=== PATIENT | female | born 1935 | race Caucasian/White ===

== ENCOUNTER 2017-12-24 01:42 | Emergency (ER) | payer MEDICARE, OTHER ==
[2017-12-24] MEDS ORDERED: LORazepam 2 MG/ML SDV IVPUSH ONE (02:04)
[2017-12-24] MEDS ORDERED: Furosemide 40 MG/4 ML VIAL IV ONE (02:05)
[2017-12-24] MEDS ORDERED: Albuterol/Ipratropium 3.0-0.5 MG/3 ML Neb Soln NEB ONE (02:05)
[2017-12-24] MEDS ORDERED: methylPREDNISolone Sodium Succinate 40 MG/1 ML SDV IVPUSH ONE (02:06)
[2017-12-24 02:54] LABS: CHLORIDE,CL 96 mmol/L (98-107)
[2017-12-24 03:03] LABS: ANION GAP 16.2 mmol/L (10-20); SODIUM,NA 127 mmol/L (136-145)
[2017-12-24] MEDS ORDERED: cefTRIAXone 1 GM Vial IVPUSH ONE (03:08)
[2017-12-24] MEDS ORDERED: Morphine 2 MG/ML Syringe IVPUSH ONE (03:13)
--- NOTE | 2017-12-24 03:54 | EDM.PDOC ---
ED HPI GENERAL MEDICAL PROBLEM - General Chief Complaint: Respiratory Problem Stated Complaint: Respiratory Distress Time Seen by Provider: 12/24/17 02:03 Source of Information: Reports: EMS, EMS Notes Reviewed History Limitations: Reports: No Limitations - History of Present Illness INITIAL COMMENTS - FREE TEXT/NARRATIVE: Patient was in respiratory distress and pushed her life alert button. EMS arrived to transport her and applied bipap, stated her oxygen saturations were 90%, and she had a very heavy work of breathing with retractions. She is not answering questions and is obtunded. Has a history of lung cancer, CHF, CAD, PVD, CABG, DM II. Onset: Sudden Location: Reports: Chest Associated Symptoms: Reports: Shortness of Breath Treatments QC MANAGER: Reports: Other Medication(s) (40 mg lasix given before arrival) - Related Data Allergies Allergy/AdvReac Type Severity Reaction Status Date / Time tramadol AdvReac Hallucinati Verified 12/24/17 03:55 ons Home Meds: Home Meds Acetaminophen 1,000 mg PO Q8H PRN 11/28/17 [History] Aspirin [Halfprin] 162 mg PO DAILY 11/28/17 [History] Benzonatate 200 mg PO TID PRN 11/28/17 [History] Calcium Carbonate [Calcium] 600 mg PO DAILY 11/28/17 [History] Carboxymethylcellulos/Glycerin [Lubricant 0.5-0.9% Eye Drops] 1 drop EYEBOTH DAILY 11/28/17 [History] Cyanocobalamin (Vitamin B-12) [B-12] 500 mcg PO DAILY 11/28/17 [History] Flaxseed Oil 1,000 mg PO BID 11/28/17 [History] Isosorbide Mononitrate [Isosorbide Mononitrate ER] 30 mg PO DAILY 11/28/17 [ History] Lisinopril 20 mg PO DAILY 11/28/17 [History] Lovastatin 20 mg PO DAILY 11/28/17 [History] Metoprolol Succinate [Toprol XL 100mg] 100 mg PO DAILY 11/28/17 [History] NIFEdipine [Nifedipine ER] 30 mg PO DAILY 11/28/17 [History] Nitroglycerin [Nitrostat] 0.4 mg SL ASDIRECTED PRN 11/28/17 [History] Omeprazole 20 mg PO DAILY 11/28/17 [History] PARoxetine HCl [Paroxetine HCl] 20 mg PO DAILY 11/28/17 [History] metFORMIN HCl [Metformin HCl] 1,000 mg PO BIDMEALS 11/28/17 [History] Albuterol/Ipratropium [DuoNeb 3.0-0.5 MG/3 ML] 3 ml NEB Q4HRRT PRN #1 neb [Rx] Albuterol/Ipratropium [DuoNeb 3.0-0.5 MG/3 ML] 3 ml NEB TIDRT #90 neb 11/30/17 [ Rx] Doxycycline [Vibramycin] 100 mg PO BID #6 cap 11/30/17 [Rx] Furosemide [Lasix] 20 mg PO DAILY #30 tablet 11/30/17 [Rx] Magnesium Oxide 400 mg PO DAILY #30 tablet 11/30/17 [Rx] Nitroglycerin [Nitrostat] 0.4 mg SL Q5M PRN #25 tab.sl 11/30/17 [Rx] ED ROS GENERAL - Review of Systems Review Of Systems: Unable To Obtain ED EXAM, GENERAL - Physical Exam Exam: See Below Exam Limited By: Respiratory Distress General Appearance: Obtunded, Mild Distress Eye Exam: Bilateral Eye: Normal Inspection Ears: Normal TMs Nose: Normal Inspection, Normal Mucosa, No Blood Throat/Mouth: Normal Inspection, Normal Lips, Normal Teeth, Normal Gums, Normal Oropharynx, Normal Voice, No Airway Compromise Head: Atraumatic, Normocephalic Neck: Normal Inspection, Supple, Non-Tender, Full Range of Motion Respiratory/Chest: Respiratory Distress, Decreased Breath Sounds, Rales, Accessory Muscle Use Cardiovascular: Normal Peripheral Pulses, Regular Rate, Rhythm, No Edema, No Gallop, No JVD, No Murmur, No Rub Peripheral Pulses: 2+: Posterior Tibial (L), Posterior Tibial (R), Dorsalis Pedis (L), Dorsalis Pedis (R) GI/Abdominal: Normal Bowel Sounds, Soft, Non-Tender, No Organomegaly, No Distention, No Abnormal Bruit, No Mass Back Exam: Normal Inspection, Full Range of Motion, NT Extremities: Normal Inspection, Normal Range of Motion, Non-Tender, Normal Capillary Refill, No Pedal Edema Neurological: Unresponsive Skin Exam: Diaphoretic Lymphatic: No Adenopathy Course - Vital Signs Last Recorded V/S: Last Vital Signs Temp 35.8 C 12/24/17 01:45 Pulse 80 12/24/17 04:50 Resp 17 12/24/17 04:50 BP 104/71 12/24/17 04:50 Pulse Ox 97 12/24/17 04:50 - Orders/Labs/Meds Orders: Active Orders 24 hr Category Date Time Status EKG Documentation Completion [RC] STAT Care 12/24/17 02:05 Ordered Ivy Catheter Insertion [Insert Urinary Catheter] [OM. Care 12/24/17 02:30 Ordered PC] Q24H RT Aerosol Therapy [RC] ASDIRECTED Care 12/24/17 02:05 Ordered Urinary Catheter Assessment [RC] ASDIRECTED Care 12/24/17 02:19 Ordered Chest 1V Frontal [CR] Stat Exams 12/24/17 02:03 Ordered URINALYSIS W/MICROSCOPIC [UA W/MICROSCOPIC] [URIN] Stat Lab 12/24/17 02:17 Ordered Labs: Laboratory Tests 12/24/17 12/24/17 12/24/17 Range/Units 02:15 02:15 02:15 WBC 13.9 H (4.0-10.0) x10^3/uL RBC 3.32 L (4.00-5.50) x10^6/uL Hgb 10.9 L D (12.0-16.0) g/dL Hct 33.7 (33.0-47.0) % MCV 101.5 H D (78.0-93.0) fL MCH 32.8 H (26.0-32.0) pg MCHC 32.3 (32.0-36.0) g/dL RDW Coeff of Shivain 12.9 (10.0-15.0) % Plt Count 306 (130-400) x10^3/uL Neut % (Auto) 63.0 (50.0-80.0) % Lymph % (Auto) 27.3 (25.0-50.0) % [place] % (Auto) 5.5 (2.0-11.0) % Eos % (Auto) 3.8 (0.0-4.0) % Baso % (Auto) 0.4 (0.2-1.2) % PT 10.3 (9.6-11.4) SEC INR 1.0 L (2.0-3.5) POC ABG pH POC ABG pCO2 POC ABG pO2 POC ABG HCO3 POC ABG Total CO2 POC ABG O2 Sat POC ABG Base Excess POC VBG pH POC VBG pCO2 POC VBG pO2 POC VBG HCO3 POC VBG Total CO2 POC VBG Base Excess O2 Delivery Device POC O2 Flow Rate POC FiO2 Sodium 127 L* (136-145) mmol/L Potassium 5.2 H (3.5-5.1) mmol/L Chloride 96 L (98-107) mmol/L Carbon Dioxide 20 L (21-32) mmol/L Anion Gap 16.2 (10-20) mmol/L BUN 29 H (7-18) mg/dL Creatinine 1.6 H (0.55-1.02) mg/dL Est Cr Clr Drug Dosing TNP Estimated GFR (MDRD) 31 Glucose 425 H* (74-106) mg/dL Lactic Acid (0.4-2.0) mmol/L Calcium 8.8 (8.5-10.1) mg/dL Corrected Calcium 9.52 (8.5-10.1) mg/dL Magnesium 1.8 (1.8-2.4) mg/dL Total Bilirubin 0.3 (0.2-1.0) mg/dL AST 19 (15-37) U/L ALT 15 (14-59) U/L Alkaline Phosphatase 79 (46-116) U/L Creatine Kinase 58 (26-192) U/L Troponin I 0.431 H* (<=0.056) ng/mL C-Reactive Protein 5.8 H (<=0.9) mg/dL NT-Pro-B Natriuret Pep 31103 H (<=450) pg/mL Total Protein 7.4 (6.4-8.2) g/dL Albumin 3.1 L (3.4-5.0) g/dL Globulin 4.3 Albumin/Globulin Ratio 0.72 POC Result Comm Urine Color (YELLOW) Urine Appearance (CLEAR) Urine pH (5.0-8.0) Ur Specific [place] Urine Protein (NEGATIVE) mg/dL Urine Glucose (UA) (NEGATIVE) mg/dL Urine Ketones (NEGATIVE) mg/dL Urine Occult Blood (NEGATIVE) Urine Nitrite (NEGATIVE) Urine Bilirubin (NEGATIVE) Urine Urobilinogen (0.2) EU/dL Ur Leukocyte Esterase (NEGATIVE) Urine RBC (NOT SEEN) /HPF Urine WBC (NOT SEEN) /HPF Ur Squamous Epith Cells (NEGATIVE) /HPF Urine Bacteria (NEGATIVE) /HPF Urine Mucus (NEGATIVE) /LPF 12/24/17 12/24/17 12/24/17 Range/Units 02:15 02:17 02:41 WBC (4.0-10.0) x10^3/uL RBC (4.00-5.50) x10^6/uL Hgb (12.0-16.0) g/dL Hct (33.0-47.0) % MCV (78.0-93.0) fL MCH (26.0-32.0) pg MCHC (32.0-36.0) g/dL RDW Coeff of Shivani (10.0-15.0) % Plt Count (130-400) x10^3/uL Neut % (Auto) (50.0-80.0) % Lymph % (Auto) (25.0-50.0) % [place] % (Auto) (2.0-11.0) % Eos % (Auto) (0.0-4.0) % Baso % (Auto) (0.2-1.2) % PT (9.6-11.4) SEC INR (2.0-3.5) POC ABG pH Cancelled POC ABG pCO2 Cancelled POC ABG pO2 Cancelled POC ABG HCO3 Cancelled POC ABG Total CO2 Cancelled POC ABG O2 Sat Cancelled POC ABG Base Excess Cancelled POC VBG pH Cancelled POC VBG pCO2 Cancelled POC VBG pO2 Cancelled POC VBG HCO3 Cancelled POC VBG Total CO2 Cancelled POC VBG Base Excess Cancelled O2 Delivery Device Cancelled POC O2 Flow Rate Cancelled POC FiO2 Cancelled Sodium (136-145) mmol/L Potassium (3.5-5.1) mmol/L Chloride (98-107) mmol/L Carbon Dioxide (21-32) mmol/L Anion Gap (10-20) mmol/L BUN (7-18) mg/dL Creatinine (0.55-1.02) mg/dL Est Cr Clr Drug Dosing Estimated GFR (MDRD) Glucose (74-106) mg/dL Lactic Acid 7.2 H* (0.4-2.0) mmol/L Calcium (8.5-10.1) mg/dL Corrected Calcium (8.5-10.1) mg/dL Magnesium (1.8-2.4) mg/dL Total Bilirubin (0.2-1.0) mg/dL AST (15-37) U/L ALT (14-59) U/L Alkaline Phosphatase (46-116) U/L Creatine Kinase (26-192) U/L Troponin I (<=0.056) ng/mL C-Reactive Protein (<=0.9) mg/dL NT-Pro-B Natriuret Pep (<=450) pg/mL Total Protein (6.4-8.2) g/dL Albumin (3.4-5.0) g/dL Globulin Albumin/Globulin Ratio POC Result Comm Urine Color Light yellow (YELLOW) Urine Appearance Cloudy H (CLEAR) Urine pH 7.5 (5.0-8.0) Ur Specific [place] 1.015 Urine Protein 100 H (NEGATIVE) mg/dL Urine Glucose (UA) Negative (NEGATIVE) mg/dL Urine Ketones Negative (NEGATIVE) mg/dL Urine Occult Blood Moderate H (NEGATIVE) Urine Nitrite Positive H (NEGATIVE) Urine Bilirubin Negative (NEGATIVE) Urine Urobilinogen 0.2 (0.2) EU/dL Ur Leukocyte Esterase Large H (NEGATIVE) Urine RBC 20-30 H (NOT SEEN) /HPF Urine WBC Semi-packed (NOT SEEN) /HPF Ur Squamous Epith Cells Rare (NEGATIVE) /HPF Urine Bacteria Moderate H (NEGATIVE) /HPF Urine Mucus Rare H (NEGATIVE) /LPF 12/24/17 12/24/17 Range/Units 03:00 04:34 WBC (4.0-10.0) x10^3/uL RBC (4.00-5.50) x10^6/uL Hgb (12.0-16.0) g/dL Hct (33.0-47.0) % MCV (78.0-93.0) fL MCH (26.0-32.0) pg MCHC (32.0-36.0) g/dL RDW Coeff of Shivani (10.0-15.0) % Plt Count (130-400) x10^3/uL Neut % (Auto) (50.0-80.0) % Lymph % (Auto) (25.0-50.0) % [place] % (Auto) (2.0-11.0) % Eos % (Auto) (0.0-4.0) % Baso % (Auto) (0.2-1.2) % PT (9.6-11.4) SEC INR (2.0-3.5) POC ABG pH 7.126 L* 7.250 L* POC ABG pCO2 61 H* 60 H POC ABG pO2 38 L* 33 L* POC ABG HCO3 20 L 26 POC ABG Total CO2 22 L 28 H POC ABG O2 Sat 54 L 52 L POC ABG Base Excess -9 L -1 POC VBG pH POC VBG pCO2 POC VBG pO2 POC VBG HCO3 POC VBG Total CO2 POC VBG Base Excess O2 Delivery Device POC O2 Flow Rate POC FiO2 0.60 0.60 Sodium (136-145) mmol/L Potassium (3.5-5.1) mmol/L Chloride (98-107) mmol/L Carbon Dioxide (21-32) mmol/L Anion Gap (10-20) mmol/L BUN (7-18) mg/dL Creatinine (0.55-1.02) mg/dL Est Cr Clr Drug Dosing Estimated GFR (MDRD) Glucose (74-106) mg/dL Lactic Acid (0.4-2.0) mmol/L Calcium (8.5-10.1) mg/dL Corrected Calcium (8.5-10.1) mg/dL Magnesium (1.8-2.4) mg/dL Total Bilirubin (0.2-1.0) mg/dL AST (15-37) U/L ALT (14-59) U/L Alkaline Phosphatase (46-116) U/L Creatine Kinase (26-192) U/L Troponin I (<=0.056) ng/mL C-Reactive Protein (<=0.9) mg/dL NT-Pro-B Natriuret Pep (<=450) pg/mL Total Protein (6.4-8.2) g/dL Albumin (3.4-5.0) g/dL Globulin Albumin/Globulin Ratio POC Result Comm Called critical res Called critical res Urine Color (YELLOW) Urine Appearance (CLEAR) Urine pH (5.0-8.0) Ur Specific [place] Urine Protein (NEGATIVE) mg/dL Urine Glucose (UA) (NEGATIVE) mg/dL Urine Ketones (NEGATIVE) mg/dL Urine Occult Blood (NEGATIVE) Urine Nitrite (NEGATIVE) Urine Bilirubin (NEGATIVE) Urine Urobilinogen (0.2) EU/dL Ur Leukocyte Esterase (NEGATIVE) Urine RBC (NOT SEEN) /HPF Urine WBC (NOT SEEN) /HPF Ur Squamous Epith Cells (NEGATIVE) /HPF Urine Bacteria (NEGATIVE) /HPF Urine Mucus (NEGATIVE) /LPF Meds: Medications Discontinued Medications Generic Name Dose Route Start Last Admin Trade Name Freq PRN Reason Stop Dose Admin Albuterol/Ipratropium 3 ml 12/24/17 02:05 12/24/17 01:56 Duoneb 3.0-0.5 Mg/3 Ml NEB 12/24/17 02:06 3 ml ONETIME ONE Administration Cefepime HCl 1 gm 12/24/17 05:45 12/24/17 05:54 Maxipime IV 12/24/17 05:46 1 gm STAT ONE Administration Ceftriaxone Sodium 1 gm 12/24/17 03:08 12/24/17 03:20 Rocephin IVPUSH 12/24/17 03:09 1 gm STAT ONE Administration Furosemide 40 mg 12/24/17 02:05 12/24/17 02:17 Lasix IV 12/24/17 02:06 40 mg ONETIME ONE Administration Vancomycin HCl 1 gm/ Sodium 250 mls @ 250 mls/hr 12/24/17 05:45 12/24/17 05: 57 Chloride IV 12/24/17 06:44 250 mls/hr STAT ONE Administration Lorazepam 0.5 mg 12/24/17 02:04 12/24/17 02:12 Ativan IVPUSH 12/24/17 02:05 0.5 mg ONETIME ONE Administration Methylprednisolone Sodium Succinate 40 mg 12/24/17 02:06 12/24/17 02:16 Solu-Medrol IVPUSH 12/24/17 02:07 40 mg ONETIME ONE Administration Morphine Sulfate 2 mg 12/24/17 03:13 12/24/17 03:23 Morphine IVPUSH 12/24/17 03:14 2 mg ONETIME ONE Administration - Radiology Interpretation Free Text/Narrative:: x-ray shows fluid to bilateral lung m[place], left > right Departure - Departure Time of Disposition: 06:30 Disposition: DC/Tfer to Acute Hospital 02 Condition: Poor Clinical Impression: Pneumonia, Congestive heart failure, UTI (urinary tract infection) - Discharge Information *PRESCRIPTION DRUG MONITORING PROGRAM REVIEWED*: Not Applicable *COPY OF PRESCRIPTION DRUG MONITORING REPORT IN PATIENT [id number]: Not Applicable Referrals: Lamar Morgan, [Primary Care Provider] - Forms: ED Department Discharge, Interfacility Transfer [facility] ED Communication - ED Communication Date/Time Date: 12/24/17 Time Called: 04:00 (Dr. Maynard called to accept inpatient. Was asked to transfer to [facility] due to poor staffing) - Discussed Case With (1) Discussed Case With (1): Admitting Provider (Drs. Pearson and Nahun did graciously accept care of the patient.) - Discussed Case With (2) Discussed Case With (2): Other (Patient's sons were made aware that she is in danger of expiring, even with the bipap. Since she does not wish to be intubated, at some point she may need to have comfort cares if bipap is not effective. They are aware and in agreement.) - My Orders Last 24 Hours: My Active Orders 12/24/17 02:03 Chest 1V Frontal [CR] Stat 12/24/17 02:05 EKG Documentation Completion [RC] STAT RT Aerosol Therapy [RC] ASDIRECTED 12/24/17 02:17 URINALYSIS W/MICROSCOPIC [UA W/MICROSCOPIC] [URIN] Stat 12/24/17 02:19 Urinary Catheter Assessment [RC] ASDIRECTED 12/24/17 02:30 Ivy Catheter Insertion [Insert Urinary Catheter] [OM.PC] Q24H - Assessment/Plan Last 24 Hours: My Active Orders 12/24/17 02:03 Chest 1V Frontal [CR] Stat 12/24/17 02:05 EKG Documentation Completion [RC] STAT RT Aerosol Therapy [RC] ASDIRECTED 12/24/17 02:17 URINALYSIS W/MICROSCOPIC [UA W/MICROSCOPIC] [URIN] Stat 12/24/17 02:19 Urinary Catheter Assessment [RC] ASDIRECTED 12/24/17 02:30 Ivy Catheter Insertion [Insert Urinary Catheter] [OM.PC] Q24H
[2017-12-24 04:53] VITALS: BP 104/71
[2017-12-24] MEDS ORDERED: Cefepime 1 GM Vial IV ONE (05:45)
== END 2017-12-24 06:29 | disposition short-term general hospital (02) ==
LOC: VM.ED 01:42
DX: J18.9 Pneumonia, unspecified organism (principal); I50.9 Heart failure, unspecified; N39.0 Urinary tract infection, site not specified; Z88.5 Allergy status to narcotic agent; Z79.899 Other long term (current) drug therapy; Z79.82 Long term (current) use of aspirin
CPT/HCPCS: 36415; 36600; 51702; 71045; 80053; 81001; 82550; 82803; 83605; 83735; 83880; 84484; 85025; 85610; 86140; 93005; 96365; 96366; 96375; 99284; 99285; J0692; J0696; J1940; J2060; J2270; J2920; J3370; J7050; J7620-GY